=== PATIENT | female | born 1950 | race Caucasian/White ===

== ENCOUNTER → 2017-06-26 | Outpatient (CLI) | payer MEDICARE, OTHER ==
[~2017-06-26] MED LIST: LEXAPRO 10MG10 MG PO; LORTAB 5/500 501 TAB PO; PRINIVIL40 MG PO
== END ==
LOC: MC.RAD 11:35
DX: Z12.31 Encounter for screening mammogram for malignant neoplasm of breast (principal)

== ENCOUNTER 2017-08-23 16:00 | Outpatient (RCR) | payer MEDICARE, OTHER | END 2017-09-17 | disposition still patient (30) | LOC: COL.CR | DX: Z48.812 Encounter for surgical aftercare following surgery on the circulatory system (principal); Z95.5 Presence of coronary angioplasty implant and graft ==

== ENCOUNTER → 2017-10-14 | Outpatient (CLI) | payer MEDICARE, OTHER | LOC: COL.VAS 09:44 | DX: I25.10 Atherosclerotic heart disease of native coronary artery without angina pectoris (principal) ==

== ENCOUNTER → 2018-08-06 | Outpatient (CLI) | payer MEDICARE, OTHER | LOC: MC.RAD 09:00 | DX: Z12.31 Encounter for screening mammogram for malignant neoplasm of breast (principal) ==

== ENCOUNTER 2018-11-03 13:30 | Outpatient (RCR) | payer MEDICARE, OTHER | END 2019-01-11 | disposition home or self-care (01) | LOC: MKS.ESL.PT | DX: M25.551 Pain in right hip (principal); M25.372 Other instability, left ankle | CPT/HCPCS: G8978-GP; G8979-GP ==

== ENCOUNTER → 2019-08-05 | Outpatient (CLI) | payer MEDICARE, OTHER | LOC: MC.RAD 09:30 | DX: Z12.31 Encounter for screening mammogram for malignant neoplasm of breast (principal); N63.20 Unspecified lump in the left breast, unspecified quadrant ==

== ENCOUNTER → 2020-08-16 | Outpatient (CLI) | payer MEDICARE, OTHER | LOC: MC.RAD 08-08 08:30 | DX: Z12.31 Encounter for screening mammogram for malignant neoplasm of breast (principal) ==

== ENCOUNTER → 2021-08-18 | Outpatient (CLI) | payer MEDICARE, OTHER | LOC: MC.RAD 09:23 | DX: Z12.31 Encounter for screening mammogram for malignant neoplasm of breast (principal) ==

== ENCOUNTER → 2022-08-20 | Outpatient (CLI) | payer MEDICARE, OTHER | LOC: MC.RAD 09:25 | DX: Z12.31 Encounter for screening mammogram for malignant neoplasm of breast (principal) ==

== ENCOUNTER → 2023-09-03 | Outpatient (CLI) | payer MEDICARE, OTHER | LOC: CANSCHCLI → MC.RAD 10:23 | DX: Z12.31 Encounter for screening mammogram for malignant neoplasm of breast (principal) ==

== ENCOUNTER → 2024-09-11 | Outpatient (CLI) | payer MEDICARE, OTHER | LOC: MC.RAD 09:27 | DX: Z12.31 Encounter for screening mammogram for malignant neoplasm of breast (principal) ==